=== PATIENT | female | born 1955 | race Caucasian/White ===

== ENCOUNTER → 2020-08-03 | Outpatient (CLI) | payer MEDICARE | LOC: ECHO 13:30 | DX: I73.9 Peripheral vascular disease, unspecified (principal) | CPT/HCPCS: ECHO; 93306; 93925 ==

== ENCOUNTER → 2020-09-30 | Outpatient (CLI) | payer MEDICARE | LOC: MAMO 10:30 | DX: Z12.31 Encounter for screening mammogram for malignant neoplasm of breast (principal) | CPT/HCPCS: 77063; 77067 ==

== ENCOUNTER → 2021-06-25 | Outpatient (CLI) | payer MEDICARE ==
[~2021-06-25] MED LIST: AMLODIPINE BESY10 MG PO; CATAPRES 0.1MG0.1 MG PO; FENTANYL 100 MCG TD; FLUOXETINE HCL40 MG PO; LACTULOSE10 GM/152 PO; LASIX40 MG PO; LEVOTHYROXINE75 MC1 PO; OXYCODONE-ACET1 EACH PO
[2021-06-25 13:18] LABS: HEMOGLOBIN 12.5 gm/dl (12.3-15.3); RED BLOOD COUNT 4.27 M/UL (4.00-5.10); WHITE BLOOD COUNT 4.1 K/UL (4.5-11.0)
[2021-06-25 13:37] LABS: BUN/CREATININE RATIO 20 (0-10)
== END ==
LOC: OPSV2 06-23 10:00 → EDSTATUS 12:30 → OPSV2 12:30
PROVIDERS: Orthopaedic Surgery
DX: Z01.818 Encounter for other preprocedural examination (principal); M12.862 Other specific arthropathies, not elsewhere classified, left knee
CPT/HCPCS: 36415; 80048; 85027; 85652; 86140; 93005

== ENCOUNTER → 2021-07-05 | Outpatient (CLI) | payer MEDICARE ==
[~2021-07-05] MED LIST changes: +CYCLOBENZAPRINE10 MG PO; +ELIQUIS 2.5 MG2.5 MG GT; -FENTANYL 100 MCG TD; +FENTANYL1 EAC3 TD; -LEVOTHYROXINE75 MC1 PO; +LEVOTHYROXINE75 MCG PO; +ROXICODONE15 MG PO; +TYLENOL EXTRA500 MG PO
[2021-07-05 13:58] LABS: BUN/CREATININE RATIO 18 (0-10)
== END ==
LOC: LAB 13:16
PROVIDERS: Orthopaedic Surgery
DX: Z01.812 Encounter for preprocedural laboratory examination (principal)
CPT/HCPCS: 36415; 80048; 86850; 86900; 86901

== ENCOUNTER 2021-07-06 07:41 | Day surgery (SDC) | payer MEDICARE ==
[~2021-07-06] VITALS: Ht 157.5 cm; Wt 79.4 kg
[~2021-07-06 07:41] MED LIST changes: -CYCLOBENZAPRINE10 MG PO; -ELIQUIS 2.5 MG2.5 MG GT; -ROXICODONE15 MG PO; -TYLENOL EXTRA500 MG PO
[2021-07-06] MEDS ORDERED: ELIQUIS 2.5 MG2.5 MG GT (15:04)
[2021-07-06] MEDS ORDERED: CYCLOBENZAPRINE10 MG PO (15:04)
[2021-07-06] MEDS ORDERED: ROXICODONE15 MG PO (15:04)
[2021-07-06] MEDS ORDERED: TYLENOL EXTRA500 MG PO (17:56)
[2021-07-07 03:09] LABS: HEMOGLOBIN 9.4 gm/dl (12.3-15.3); RED BLOOD COUNT 3.18 M/UL (4.00-5.10); WHITE BLOOD COUNT 11.1 K/UL (4.5-11.0)
--- NOTE | 2021-07-07 12:04 | NUR ---
07/07/21 1200 REPORT CALLED TO [facility] AT [phone]
== END 2021-07-07 14:10 | disposition home health service (06) ==
LOC: OR 07:41 → M/S 16:35 → OR 07-07 14:10
PROVIDERS: Orthopaedic Surgery
DX: T84.033A Mechanical loosening of internal left knee prosthetic joint, initial encounter (principal); T84.84XA Pain due to internal orthopedic prosthetic devices, implants and grafts, initial encounter; E78.5 Hyperlipidemia, unspecified; E03.9 Hypothyroidism, unspecified; G89.4 Chronic pain syndrome; Z79.899 Other long term (current) drug therapy; Z20.822 Contact with and (suspected) exposure to COVID-19
CPT/HCPCS: 36415; 73560; 80048; 85027; 87070; 97116-GP-CQ; 97161; 97166; 97535; C1776; J0171; J0690; J0735; J1100; J1170; J1200; J1644; J1885; J2274; J2405; J2704; J2710; J2795; J3010; J3370; J3475; J7030; J7050; J7120

== ENCOUNTER → 2021-08-02 | Outpatient (CLI) | payer MEDICARE ==
[~2021-08-02] MED LIST changes: +CYCLOBENZAPRINE10 MG PO; +ELIQUIS 2.5 MG2.5 MG GT; +ROXICODONE15 MG PO; +TYLENOL EXTRA500 MG PO
[2021-08-02 13:33] LABS: HEMOGLOBIN 9.9 gm/dl (12.3-15.3); RED BLOOD COUNT 3.55 M/UL (4.00-5.10); WHITE BLOOD COUNT 4.1 K/UL (4.5-11.0)
[2021-08-02 14:15] LABS: BUN/CREATININE RATIO 24 (0-10)
== END ==
LOC: LAB 13:12
PROVIDERS: Nurse Practitioner Family
DX: I10 Essential (primary) hypertension (principal); E78.5 Hyperlipidemia, unspecified; E03.9 Hypothyroidism, unspecified; E55.9 Vitamin D deficiency, unspecified
CPT/HCPCS: 36415; 80053; 80061; 81001; 84439; 84443; 85025

== ENCOUNTER → 2021-09-16 | Day surgery (SDC) | payer MEDICARE ==
[~2021-09-16] VITALS: Ht 152.4 cm; Wt 74.4 kg
[~2021-09-16] MED LIST changes: +ASPIRIN EC81 MG PO; +ENDOCET 10-3251 EACH PO; +LIPITOR TAB 1010 MG PO; +LIPITOR10 MG PO; +MIRALAX 119 GR119 GM GT; +PERCOCET 10-321 EACH PO
[2021-09-16 07:00] LABS: HEMOGLOBIN 11.7 gm/dl (12.3-15.3); RED BLOOD COUNT 4.53 M/UL (4.00-5.10)
[2021-09-16 07:24] LABS: BUN/CREATININE RATIO 28 (0-10)
== END | disposition home or self-care (01) ==
LOC: OR 06:16 → EDSTATUS 08:30
PROVIDERS: Orthopaedic Surgery
DX: T84.023A Instability of internal left knee prosthesis, initial encounter (principal); Y79.2 Prosthetic and other implants, materials and accessory orthopedic devices associated with adverse incidents; Y83.8 Other surgical procedures as the cause of abnormal reaction of the patient, or of later complication, without mention of misadventure at the time of the procedure; I10 Essential (primary) hypertension
CPT/HCPCS: 36415; 73560; 80048; 85025; 93005; 97110; 97161; 97165; C1713; J0690; J1100; J1200; J1885; J2274; J2405; J2704; J2710; J3010; J3370; J3475; J7120